=== PATIENT | male | born 1990 | race African-American/Black ===

== ENCOUNTER 2016-06-01 02:05 | Emergency (ER) | payer OTHER ==
[2016-06-01 02:03] LABS: INFLUENZA A NEG (NEG); INFLUENZA B NEG (NEG)
[~2016-06-01 02:05] MED LIST: ALBUTEROL17 GM; ALBUTEROL17 GM INH; BROMPHED DM PO; CLARITIN10 M2 PO; IBUPROFEN PO; PREDNISONE50 MG PO; ROBITUSSIN A-C S5 ML PO; TAMIFLU75 M1 PO; TESSALON PERLE100 M1 PO; ZITHROMAX PO
== END 2016-06-01 02:28 | disposition home or self-care (01) ==
LOC: SED 02:05
PROVIDERS: Emergency Medicine
DX: J02.0 Streptococcal pharyngitis (principal); J45.909 Unspecified asthma, uncomplicated; F17.200 Nicotine dependence, unspecified, uncomplicated
CPT/HCPCS: 87804; 87880; 99283